=== PATIENT | male | born 1985 | race Caucasian/White ===

== ENCOUNTER 2018-12-10 15:25 | Emergency (ER) | payer MEDICAID ==
[~2018-12-10] VITALS: Ht 180.3 cm; Wt 77.2 kg
--- NOTE | 2018-12-10 15:40 | NUR ---
DR MENG BS FOR EXAM
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
[2018-12-10 15:52] VITALS: BP 161/92
[2018-12-10] MEDS ORDERED: DIPHENHYDRAMINE 50 MG/ML, 1ML ONE (15:56)
[2018-12-10] MEDS ORDERED: METOCLOPRAMIDE 5 MG/ML, 2ML ONE (15:57)
[2018-12-10] MEDS ORDERED: SODIUM CHLORIDE FLUSH 10ML SYR IVF ONE (16:00)
[2018-12-10] MEDS ORDERED: METOCLOPRAMIDE 5 MG/ML, 2ML IVPush ONE (16:00)
[2018-12-10] MEDS ORDERED: DIPHENHYDRAMINE 50 MG/ML, 1ML IVPush ONE (16:00)
== END 2018-12-10 17:10 | disposition left against medical advice (07) ==
LOC: ED 16:25
DX: G43.C1 Periodic headache syndromes in child or adult, intractable (principal)
CPT/HCPCS: 96374; 96375; 99283; J1200; J2765